=== PATIENT | female | born 1965 | race Asian ===

== ENCOUNTER 2020-02-08 02:58 | Emergency (ER) | payer OTHER ==
[~2020-02-08] VITALS: Ht 158.8 cm; Wt 56.7 kg
--- NOTE | 2020-02-08 03:17 | NUR ---
PT AAOX4. BIB DAUGHTER C/O CHEST DISCOMFORT FOR THE PAST YEAR BUT "SLOWLY GETTING WORSE." PT STATES WHEN SHE LAYS DOWN TO SLEEP SHE FEELS "BLOOD OCCUMULATING." PALCED ON MONITOR AND PULSE OX. VSS. NO ACUTE DISTRESS NTOED. RR EVN AND UNLABORED.
--- NOTE | 2020-02-08 03:19 | NUR ---
EMT AT BEDSIDE FOR EKG
[2020-02-08 03:23] LABS: BASOPHILS # (AUTO) 0.1 /CMM (0.0-0.2); BASOPHILS % (AUTO) 1.1 % (0.0-2.0); EOSINOPHILS % (AUTO) 1.3 % (0.0-6.0); HEMATOCRIT 40 % (33-45); HEMOGLOBIN 13.5 g/dL (11.5-14.8); LYMPHOCYTES # (AUTO) 2.2 /CMM (0.8-4.8); LYMPHOCYTES % (AUTO) 36.6 % (20.0-44.0); MEAN CORPUSCULAR HGB CONC 34 g/dl (31.0-36.0); MEAN CORPUSCULAR VOLUME 85 fL (82-100); MONOCYTES # (AUTO) 0.4 /CMM (0.1-1.30); MONOCYTES % (AUTO) 6.9 % (2.0-12.0); NEUTROPHILS # (AUTO) 3.3 /CMM (1.8-8.9); NEUTROPHILS % (AUTO) 54.1 % (43.0-81.0); PLATELET COUNT (AUTO) 252 /CMM (150-450); RED BLOOD CELL COUNT(AUTO) 4.67 MIL/uL (4.0-5.2)
[2020-02-08 03:38] LABS: ALANINE AMINOTRANSFERASE 29 U/L (12-78); ALBUMIN 5.1 g/dL (3.4-5.0); ALKALINE PHOSPHATASE 80 U/L (46-116); ASPARTATE AMINOTRANSFERASE 19 U/L (15-37); BILIRUBIN,DIRECT 0.1 mg/dL (0.0-0.2); BILIRUBIN,TOTAL 0.5 mg/dL (0.2-1.0); CALCIUM, SERUM 10.1 mg/dL (8.5-10.1); CARBON DIOXIDE 30 mmol/L (21-32); CHLORIDE 100 mmol/L (98-107); CREATININE 0.7 mg/dL (0.6-1.3); GLUCOSE 135 mg/dL (74-106); POTASSIUM 3.5 mmol/L (3.5-5.1); SODIUM SERUM 140 mmol/L (136-145); TOTAL PROTEIN, SERUM 8.8 g/dL (6.4-8.2); UREA NITROGEN, BLOOD 8 mg/dL (7-18)
--- NOTE | 2020-02-08 04:47 | NUR ---
CALLED KEENA FOR REPORT
--- NOTE | 2020-02-08 04:58 | NUR ---
Patient discharged to home in stable condition. Written and verbal after care instructions given. Patient verbalizes understanding of instruction. Pt ambulated using her walker. vss. Left with daughter.
[2020-02-08 04:59] VITALS: BP 142/89
== END 2020-02-08 04:59 | disposition home or self-care (01) ==
LOC: ER 03:01
DX: R07.89 Other chest pain (principal); F41.9 Anxiety disorder, unspecified; I10 Essential (primary) hypertension; E11.9 Type 2 diabetes mellitus without complications; G89.29 Other chronic pain; M54.9 Dorsalgia, unspecified; E03.9 Hypothyroidism, unspecified
CPT/HCPCS: 36415; 71045-TC; 80048-TC; 80076-TC; 84484-TC; 85025-TC

== ENCOUNTER 2022-03-19 13:12 | Emergency (ER) | payer BC, OTHER ==
[~2022-03-19] VITALS: Ht 160 cm; Wt 52.2 kg
--- NOTE | 2022-03-19 13:12 | NUR ---
TO ER BED 9 BIB C/O MUSCLE SPASMS AND CHEST PAIN THAT RADIATES TO THE NECK AND STOMACH, PT STATED SHE HAS HAD THIS PAIN SINCE SHE HAD BACK SURGEYR LAST YEAR BUT THE PAIN GOT WORSE YESTERDAY. PT ATTACHED TO MONITOR, NO RESP DISTRESS NOTED. DR ZAMARRIPA AT BEDSIDE.
--- NOTE | 2022-03-19 13:31 | NUR ---
IV LINE IS ESTABLISHED, BLOOD SPECIMEN COLLECTED AND SENT TO THE LAB. THE LINE IS SALINE LOCKED.
[2022-03-19 13:41] LABS: BASOPHILS % (AUTO) 0.5 % (0.0-2.0); EOSINOPHILS % (AUTO) 0.7 % (0.0-6.0); HEMATOCRIT 37 % (33-45); HEMOGLOBIN 12.6 g/dL (11.5-14.8); LYMPHOCYTES # (AUTO) 1.3 K/uL (0.8-4.8); LYMPHOCYTES % (AUTO) 19.6 % (20.0-44.0); MEAN CORPUSCULAR HGB CONC 34 g/dl (31.0-36.0); MEAN CORPUSCULAR VOLUME 85 fL (82-100); MONOCYTES # (AUTO) 0.4 K/uL (0.1-1.30); MONOCYTES % (AUTO) 6.7 % (2.0-12.0); NEUTROPHILS # (AUTO) 4.8 K/uL (1.8-8.9); NEUTROPHILS % (AUTO) 72.5 % (43.0-81.0); PLATELET COUNT (AUTO) 264 K/uL (150-450); RED BLOOD CELL COUNT(AUTO) 4.36 MIL/uL (4.0-5.2); WHITE BLOOD COUNT (AUTO) 6.6 K/uL (4.3-11.0)
[2022-03-19 13:48] LABS: CALCIUM, SERUM 9.6 mg/dL (8.5-10.1); CARBON DIOXIDE 29 mmol/L (21-32); CHLORIDE 102 mmol/L (98-107); CREATININE 0.5 mg/dL (0.6-1.3); GLUCOSE 115 mg/dL (74-106); POTASSIUM 4.5 mmol/L (3.5-5.1); SODIUM SERUM 138 mmol/L (136-145); UREA NITROGEN, BLOOD 10 mg/dL (7-18)
--- NOTE | 2022-03-19 17:13 | NUR ---
IV removed. Catheter intact and site benign. Pressure and 4x4 applied to site. No bleeding noted.Patient discharged to home in stable condition. Written and verbal after care instructions given. Patient verbalizes understanding of instruction. The patient is picked up by her .
[2022-03-19 17:14] VITALS: BP 135/85
== END 2022-03-19 17:14 | disposition home or self-care (01) ==
LOC: ER 13:17
DX: R07.89 Other chest pain (principal); I10 Essential (primary) hypertension; E11.9 Type 2 diabetes mellitus without complications; G89.29 Other chronic pain; Z87.39 Personal history of other diseases of the musculoskeletal system and connective tissue
CPT/HCPCS: 36415; 71045-TC; 80048-TC; 84484-TC; 85025-TC